=== PATIENT | female | born 1955 | race Caucasian/White ===

== ENCOUNTER 2017-11-13 15:13 | Emergency (ER) | payer BC ==
[2017-11-13] MEDS ORDERED: Albuterol 2.5 MG/3 ML NEB.SOL* (0.083%) INH ONE (15:47)
[2017-11-13] MEDS ORDERED: Ipratropium 0.5MG/2.5ML NEB* 0.5 MG/2.5 ML NEB.SOLN INH ONE (15:47)
[2017-11-13] MEDS ORDERED: predniSONE TAB* 20 MG PO ONE (15:47)
--- NOTE | 2017-11-13 15:54 | UC ---
Respiratory Complaint HPI - HPI Summary HPI Summary: 62 yo asthmatic reports a 2 weeks hx of cough and using her rescue inhaler no fever/chills had had to use inhaler up 4x days now chest and back hurts with deep breath which she states is typical of her bronchitis - History of Current Complaint Chief Complaint: UCRespiratory Stated Complaint: ASTHMA Time Seen by Provider: 11/13/17 15:35 Hx Obtained From: Patient Onset/Duration: Gradual Onset, Lasting Weeks - 2 Timing: Constant Severity Initially: Mild Severity Currently: Moderate Pain Intensity: 8 Pain Scale Used: 0-10 Numeric Character: Cough: Nonproductive Aggravating Factors: Other Alleviating Factors: Bronchodilator Associated Signs And Symptoms: Positive: Dyspnea, Wheezing - Allergies/Home Medications Allergies/Adverse Reactions: Allergies Allergy/AdvReac Type Severity Reaction Status Date / Time clarithromycin Allergy Severe Hives Verified 11/13/17 15:39 levofloxacin Allergy Severe Hives Verified 11/13/17 15:39 morphine Allergy Severe Hives Verified 11/13/17 15:39 Home Medications: Home Medications Albuterol 0.5% CONC NEB.MEJIA* 11/13/17 [History] Albuterol/Ipratropium RESP(NF) [Combivent Respimat (NF)] 11/13/17 [History] PMH/Surg Hx/FS Hx/Imm Hx Previously Healthy: Yes Endocrine History: Thyroid Disease Respiratory History: Asthma, Bronchitis Neurological History: Migraine - Surgical History Surgical History: Yes Surgery Procedure, Year, and Place: BONE GRAFT PELVIS - HX OF LEFT HIP SURGERY 2001. METAL CAGE LSP. 3 FEMUR LEFT SURGERIES. 2X RIGHT SHOULDER SURGERY. 2 RIGHT FOOT SURGERIES- 1 LEFT FOOT SURGERY. right shoulder surgery-October 2016- [facility] - Family History Known Family History: Positive: Hypertension, Respiratory Disease Negative: Cardiac Disease, Diabetes - Social History Alcohol Use: Occasionally Substance Use Type: None Smoking Status (MU): Former Smoker Type: Cigarettes Have You Smoked in the Last Year: No When Did the Patient Quit Smoking/Using Tobacco: 1 YEAR IN COLLEGE, 40 YEARS AGO Review of Systems Constitutional: Negative Skin: Negative Eyes: Negative ENT: Negative Respiratory: Shortness Of Breath - intermittently, Cough Cardiovascular: Negative Gastrointestinal: Negative Genitourinary: Negative Motor: Negative Neurovascular: Negative Musculoskeletal: Negative Neurological: Negative Psychological: Negative Is Patient Immunocompromised?: No All Other Systems Reviewed And Are Negative: Yes Physical Exam Triage Information Reviewed: Yes Appearance: Well-Appearing, No Pain Distress, Well-Nourished Vital Signs: Initial Vital Signs Temp 98 F 11/13/17 15:24 Pulse 64 11/13/17 15:24 Resp 18 11/13/17 15:24 BP 149/93 11/13/17 15:24 Pulse Ox 98 11/13/17 15:24 Vital Signs Reviewed: Yes Eyes: Positive: Conjunctiva Clear ENT: Positive: Hearing grossly normal. Negative: Nasal congestion, Nasal drainage Neck: Positive: Supple, Nontender, No Lymphadenopathy Respiratory: Positive: No respiratory distress, No accessory muscle use, Wheezing. Negative: Lungs clear Cardiovascular: Positive: RRR Neurological: Positive: Alert Psychological Exam: Normal Skin Exam: Normal UC Diagnostic Evaluation - Laboratory O2 Sat by Pulse Oximetry: 98 - normal/not hypoxic Re-Evaluation - Re-Evaluation First Eval Re-Evaluation Time: 16:21 Change: Improved - better air movement - increased wheezing Respiratory Course/Dx - Differential Dx/Diagnosis Provider Diagnoses: acute bronchitis with bronchospasm Discharge - Sign-Out/Discharge Documenting (check all that apply): Discharge/Admit/Transfer - Discharge Plan Condition: Stable Disposition: HOME Prescriptions: Amoxicillin/Clavulanate TAB* [Augmentin TAB 875*] 875 mg PO BID #20 tab predniSONE TAB* [Deltasone 10 MG TAB*] 10 - 40 mg PO DAILY #28 tab Patient Education Materials: Acute Bronchitis (ED) Referrals: Estrella Crawley NP [Primary Care Provider] - 4 Days Additional Instructions: use inhaler as directed recheck for new or worsening symptoms - Billing Disposition and Condition Condition: STABLE Disposition: Home
[2017-11-13 16:20] VITALS: BP 154/86
== END 2017-11-13 16:31 | disposition home or self-care (01) ==
LOC: UCEAST 15:13
DX: J20.9 Acute bronchitis, unspecified (principal); Z88.1 Allergy status to other antibiotic agents; Z88.5 Allergy status to narcotic agent; Z87.891 Personal history of nicotine dependence
CPT/HCPCS: 99213; G0463; J7512

== ENCOUNTER 2023-06-22 09:43 | Observation (INO) ==
[~2023-06-22 09:43] MED LIST: Buffered Lidocaine 1% SYRIN 1 ml INTRADERM ONE; Dexamethasone IV 4 MG/ML VIAL 1 ml VIAL ONE; Famotidine IV 10 MG/ML 2 ml VIAL (20 mg) IV ONE; Lactated Ringers 1000 ml BAG 1,000 ML IV SCH; Lidocaine 2% PF 5 ML VIAL ONE; Midazolam 2 mg/2 ml VIAL 1 mg/ml 2 ml VIAL (2 mg) ONE; Ondansetron 4 mg VIAL 2 MG/ML 2 ml VIAL ONE; Rocuronium 50 mg VIAL 10 mg/ml 5 ml VIAL (50 mg) ONE; fentaNYL 100 mcg/2 ml 50 MCG/ML VIAL ONE
[2023-06-22 10:30] LABS: Rapid COVID-19 Molecular Undetected (Undetected)
[2023-06-22] MEDS ORDERED: Famotidine IV 10 MG/ML 2 ml VIAL (20 mg) ONE (10:30)
[2023-06-22] MEDS ORDERED: ceFAZolin 2 GM PREMIX 2 GM/50 ML BAG ONE (10:30)
[2023-06-22] MEDS ORDERED: Tranexamic Acid 1 GM/100ML BAG 2,000 MG/200 ML BAG IV ONE (10:30)
[2023-06-22] MEDS ORDERED: Phenylephrine IV 10 MG/ML 1 ml VIAL ONE (11:31)
[2023-06-22] MEDS ORDERED: Phenylephrine 40 mcg/mL 10mL (400mcg) SYRINGE ONE (11:31)
[2023-06-22] MEDS ORDERED: Sterile Water for Inj 10 ML ONE (11:31)
[2023-06-22] MEDS ORDERED: Etomidate 20 mg/10 ml 2 MG/ML 10 ml VIAL ONE (11:31)
[2023-06-22] MEDS ORDERED: Dextrose 50% Syringe 50 ml 25 GM/50 ML SYRINGE ONE (13:04)
[2023-06-22] MEDS ORDERED: ROPIVACAINE 5 MG/ML 30 ML BTL (0.5%) ONE (14:16)
[2023-06-22] MEDS ORDERED: Ropivacaine 5 MG/ML 20 ML VIAL 0.5% (100 MG) ONE (14:41)
[2023-06-22] MEDS ORDERED: Naloxone 0.4 mg VIAL 0.4 mg/ml 1 ml VIAL IV PRN (15:56)
[2023-06-22] MEDS ORDERED: fentaNYL 100 mcg/2 ml 50 MCG/ML VIAL ONE ×4 (16:11→19:59)
[2023-06-22] MEDS ORDERED: Lactulose 30 ml UDC PO PRN (16:31)
[2023-06-22] MEDS ORDERED: Magnesium Hydroxide LIQ 30 ML UDC PO PRN (16:31)
[2023-06-22] MEDS ORDERED: Morphine 2 MG/ML SYRINGE IV PRN (16:31)
[2023-06-22] MEDS ORDERED: Ondansetron ODT 4 mg TAB 4 MG TAB PO PRN (16:31)
[2023-06-22] MEDS ORDERED: Ondansetron 4 mg VIAL 2 MG/ML 2 ml VIAL IV PRN (16:31)
[2023-06-22] MEDS ORDERED: Lactated Ringers 1000 ml BAG 1,000 ML IV SCH (17:00)
[2023-06-22] MEDS ORDERED: Ondansetron 4 mg VIAL 2 MG/ML 2 ml VIAL ONE (18:08)
[2023-06-22] MEDS ORDERED: Scopolamine 1 mg/72hr PATCH ONE (18:08)
[2023-06-22] MEDS ORDERED: Ondansetron 4 mg VIAL 2 MG/ML 2 ml VIAL IV ONE (18:08)
[2023-06-22] MEDS: fentaNYL 100 mcg/2 ml 50 MCG/ML VIAL IV PRN ×5 (18:30→20:04)
[2023-06-22] MEDS ORDERED: D5LR 1000 ml BAG 1,000 ML IV SCH (19:00)
[2023-06-22] MEDS ORDERED: Scopolamine 1 mg/72hr PATCH TRANSDERM SCH (19:00)
[2023-06-22] MEDS: Magnesium Hydroxide LIQ 30 ML UDC PO SCH (21:41)
[2023-06-22] MEDS ORDERED: Dextran 70/Hypromellose Tears Eye Drops 15 ml BTL (for Artificials Tears) BOTH EYES PRN (23:13)
[2023-06-23] MEDS: ceFAZolin 1 GM ADVAN 1 GM in NS 0.9% 50 ML 50 ML IVPB SCH ×3 (00:04→13:58)
[2023-06-23 07:25] LABS: Platelet Count 208 10^3/uL (150-450)
[2023-06-23 07:48] LABS: Calcium 8.3 mg/dL (8.6-10.3); Creatinine, Serum 0.78 mg/dL (0.51-0.95); Potassium 4.1 mmol/L (3.5-5.0); eGFR CKD-EPI 82.7 (>60)
[2023-06-23 07:54] LABS: Hematocrit 31.2 % (35-45); Hemoglobin 10.7 g/dL (11.5-14.3); Mean Platelet Volume 6.9 fL (7.5-11.2)
[2023-06-23] MEDS: Magnesium Hydroxide LIQ 30 ML UDC PO SCH (08:52)
[2023-06-23] MEDS ORDERED: Vitamin THERAPEUTIC TAB PO SCH (09:00)
[2023-06-23] MEDS ORDERED: CMCS: Epleronone 25 mg TAB (NF) PO SCH (09:00)
[2023-06-23 13:49] VITALS: BP 99/61
== END 2023-06-23 15:00 | disposition home or self-care (01) ==
LOC: INTOOBSV 09:43 → AA 09:43 → SSU 19:50
PROVIDERS: ADMIT Orthopaedic Surgery Adult Reconstructive Orthopaedic Surgery; ATTEND Orthopaedic Surgery Adult Reconstructive Orthopaedic Surgery

== ENCOUNTER 2023-12-01 09:07 | Observation (INO) ==
[~2023-12-01 09:07] MED LIST changes: -Buffered Lidocaine 1% SYRIN 1 ml INTRADERM ONE; -Dexamethasone IV 4 MG/ML VIAL 1 ml VIAL ONE; -Famotidine IV 10 MG/ML 2 ml VIAL (20 mg) IV ONE; -Lactated Ringers 1000 ml BAG 1,000 ML IV SCH; -Lidocaine 2% PF 5 ML VIAL ONE; -Midazolam 2 mg/2 ml VIAL 1 mg/ml 2 ml VIAL (2 mg) ONE; +Naloxone 0.4 mg VIAL 0.4 mg/ml 1 ml VIAL IV PRN; -Ondansetron 4 mg VIAL 2 MG/ML 2 ml VIAL ONE; -Rocuronium 50 mg VIAL 10 mg/ml 5 ml VIAL (50 mg) ONE; -fentaNYL 100 mcg/2 ml 50 MCG/ML VIAL ONE
[2023-12-01 09:57] LABS: Rapid COVID-19 Molecular Undetected (Undetected)
[2023-12-01] MEDS ORDERED: Tranexamic Acid 1 GM/100ML BAG 2,000 MG/200 ML BAG IV ONE (10:13)
[2023-12-01] MEDS ORDERED: ceFAZolin 2 GM PREMIX 2 GM/50 ML BAG ONE (10:13)
[2023-12-01] MEDS ORDERED: Dextrose 50% Syringe 50 ml 25 GM/50 ML SYRINGE ONE (10:25)
[2023-12-01] MEDS: Dextrose 50% Syringe 50 ml 25 GM/50 ML SYRINGE IV PUSH PRN (10:26)
[2023-12-01] MEDS: Lactated Ringers 1000 ml BAG 1,000 ML IV SCH ×2 (10:26→18:50)
[2023-12-01] MEDS ORDERED: Dexamethasone IV 4 MG/ML VIAL 1 ml VIAL ONE ×2 (10:58→16:00)
[2023-12-01] MEDS ORDERED: Midazolam 2 mg/2 ml VIAL 1 mg/ml 2 ml VIAL (2 mg) ONE (10:58)
[2023-12-01] MEDS ORDERED: Propofol 10 MG/ML 20 ML BTL ONE (10:58)
[2023-12-01] MEDS ORDERED: Ondansetron 4 mg VIAL 2 MG/ML 2 ml VIAL ONE ×2 (10:58→15:00)
[2023-12-01] MEDS ORDERED: fentaNYL 250 mcg/5 ml 50 MCG/ML 5 ml VIAL (250 MCG) ONE (10:58)
[2023-12-01] MEDS ORDERED: Rocuronium 50 mg VIAL 10 mg/ml 5 ml VIAL (50 mg) ONE (10:58)
[2023-12-01] MEDS ORDERED: Lidocaine 2% PF 5 ML VIAL ONE (10:58)
[2023-12-01] MEDS ORDERED: ROPIVACAINE 5 MG/ML 30 ML BTL (0.5%) ONE (11:36)
[2023-12-01] MEDS ORDERED: Albumin Human 5% 12.5 GM/250 ML BTL IV ONE (12:00)
[2023-12-01] MEDS ORDERED: Morphine 2 MG/ML SYRINGE IV PRN (13:06)
[2023-12-01] MEDS ORDERED: Lactulose 30 ml UDC PO PRN (13:06)
[2023-12-01] MEDS ORDERED: Ondansetron 4 mg VIAL 2 MG/ML 2 ml VIAL IV PRN (13:06)
[2023-12-01] MEDS ORDERED: Ondansetron ODT 4 mg TAB 4 MG TAB PO PRN (13:06)
[2023-12-01] MEDS ORDERED: Magnesium Hydroxide LIQ 30 ML UDC PO PRN (13:06)
[2023-12-01] MEDS ORDERED: Calcium Carb (TUMS) 500 mg CHEW TAB PO PRN (13:06)
[2023-12-01] MEDS ORDERED: Phenylephrine 40 mcg/mL 10mL (400mcg) SYRINGE ONE (13:07)
[2023-12-01] MEDS ORDERED: ceFAZolin 2 GM in NS PREMIX 2 GM/100 ML BAG IVPB SCH (14:00)
[2023-12-01] MEDS ORDERED: Acetaminophen IV 1 GM/100ML 1,000 MG/100 ML BAG IV ONE (14:06)
[2023-12-01] MEDS ORDERED: fentaNYL 100 mcg/2 ml 50 MCG/ML VIAL ONE ×2 (15:00→15:31)
[2023-12-01] MEDS: Ondansetron 4 mg VIAL 2 MG/ML 2 ml VIAL IV PRN (15:02)
[2023-12-01] MEDS: fentaNYL 100 mcg/2 ml 50 MCG/ML VIAL IV PRN (15:05)
[2023-12-01] MEDS ORDERED: Lidocaine PATCH 4% TOPICAL PRN (17:06)
[2023-12-01] MEDS: Lidocaine PATCH 5% PATCH TRANSDERM SCH (17:38)
[2023-12-01] MEDS: Buffered Lidocaine 1% SYRIN 1 ml INTRADERM ONE (18:13)
[2023-12-01] MEDS ORDERED: Dexamethasone IV 4 MG/ML VIAL 1 ml VIAL IV SLOW PU PRN (18:47)
[2023-12-01] MEDS: Magnesium Hydroxide LIQ 30 ML UDC PO SCH (22:25)
[2023-12-01] MEDS: ceFAZolin 2 GM PREMIX 2 GM/50 ML BAG IV SCH (22:27)
[2023-12-02 06:07] LABS: Hematocrit 29.9 % (35-45); Hemoglobin 10.2 g/dL (11.5-14.3); Mean Platelet Volume 7.1 fL (7.5-11.2); Platelet Count 220 10^3/uL (150-450)
[2023-12-02 06:37] LABS: Creatinine, Serum 1.3 mg/dL (0.51-0.95); eGFR CKD-EPI 44.8 (>60)
[2023-12-02] MEDS ORDERED: ceFAZolin 2 GM PREMIX 2 GM/50 ML BAG IV SCH (08:30)
[2023-12-02] MEDS: Vitamin THERAPEUTIC TAB PO SCH (08:40)
[2023-12-02] MEDS: ceFAZolin 1 GM in Dextrose 1 GM/50 ML BAG IVPB SCH (08:40)
[2023-12-02 09:59] VITALS: BP 94/64
== END 2023-12-02 12:34 | disposition home or self-care (01) ==
LOC: AA 09:07 → INTOOBSV 09:07 → SSU 13:06
PROVIDERS: ADMIT Orthopaedic Surgery Adult Reconstructive Orthopaedic Surgery; ATTEND Orthopaedic Surgery Adult Reconstructive Orthopaedic Surgery